=== PATIENT | female | born 1975 ===

== ENCOUNTER 2019-05-17 17:07 | Emergency (ER) | payer SELFPAY ==
[2019-05-17 18:22] VITALS: BP 110/78
--- NOTE | 2019-05-17 19:33 | UC ---
- HPI Summary HPI Summary: PATIENT HAS BEEN BREAST-FEEDING HER ALMOST 2-YEAR-OLD SON 6 TIMES DAILY. STOPPED BREAST-FEEDING COLD TURKEY 3 DAYS AGO AND PRESENTS WITH PAINFUL, TENDER , ENGORGED BREASTS. NO FEVER. NO REDNESS. NO MALAISE. IS WONDERING WHAT TO DO. - History of Current Complaint Hx Obtained From: Patient, Family/Medical Screener - Breast Chief Complaint: Pain Onset/Duration: Started Days Ago, Still Present Timing: Constant Breast Pain Radiates To: Bilateral Breast Pain Aggravating Factors: Nothing - Allergy/Home Medications Allergies/Adverse Reactions: Allergies Allergy/AdvReac Type Severity Reaction Status Date / Time No Known Allergies Allergy Verified 05/17/19 18:18 Home Medications: Home Medications Sertraline* [Zoloft*] 100 mg PO DAILY #30 tab 05/17/19 [Rx] PMH/Surg Hx/FS Hx/Imm Hx Psychological History: Anxiety, Depression - Surgical History Surgical History: Yes Surgery Procedure, Year, and Place: appy. x3. lymph node removal - Family History Known Family History: Positive: Non-Contributory - Social History Alcohol Use: None Substance Use Type: None Smoking Status (MU): Never Smoked Tobacco Review of Systems All Other Systems Reviewed And Are Negative: Yes Constitutional: Positive: Other - BILATERAL BREAST PAIN Skin: Positive: Negative Respiratory: Positive: Negative Cardiovascular: Positive: Negative Gastrointestinal: Positive: Negative Physical Exam Triage Information Reviewed: Yes Appearance: Well-Appearing, No Pain Distress, Well-Nourished Vital Signs: Initial Vital Signs Temp 96.8 F 05/17/19 18:19 Pulse 70 05/17/19 18:19 Resp 18 05/17/19 18:19 BP 110/78 05/17/19 18:19 Pulse Ox 100 05/17/19 18:19 Vital Signs Reviewed: Yes Eyes: Positive: Conjunctiva Clear ENT: Positive: Hearing grossly normal Neck: Positive: Supple Respiratory: Positive: No respiratory distress, No accessory muscle use Cardiovascular: Positive: Pulses Normal Abdomen Description: Positive: Soft Musculoskeletal: Positive: No Edema Neurological: Positive: Alert Psychological: Positive: Age Appropriate Behavior Skin: Negative: Rashes UC Physical Exam Vital Signs On Initial Exam: Initial Vitals Temp Pulse Resp BP Pulse Ox 96.8 F 70 18 110/78 100 05/17/19 18:19 03/17/20 18:19 05/17/19 18:19 05/17/19 18:19 05/17/19 18:19 - Breast Exam Breast Description: Firm Breast Condition: Tender, Engorged Breast Comment: NO REDNESS OR STREAKING Breast Pain Course/Dx - Course Course Of Treatment: PATIENT WITH MILK ENGORGEMENT OF BOTH BREASTS. NO EVIDENCE OF MASTITIS ON EXAM TODAY. ADVISED PATIENT TO MANUALLY EXPRESS A LITTLE BIT OF MILK EACH DAY TO HELP RELIEVE THE PRESSURE. IBUPROFEN FOR DISCOMFORT. HEAT AND MASSAGE, BREAST SUPPORT. FOLLOW-UP IF SIGNS OR SYMPTOMS OF MASTITIS DEVELOP. PT HAS H/O ANXIETY/DEPRESSION AND HAS NOT YET ESTABLISHED WITH A PCP. NEEDS REFILL OF SERTRALINE. HAS BEEN STABLE ON 100MG DAILY FOR YEARS. ADVISED I WOULD DO IT TODAY BUT SHE NEEDS PRIMARY CARE FOR FUTURE REFILLS. - Diagnoses Provider Diagnoses: Milk engorgement of breast Discharge ED - Sign-Out/Discharge Documenting (check all that apply): Patient Departure All imaging exams completed and their final reports reviewed: No Studies - Discharge Plan Condition: Stable Disposition: HOME Prescriptions: Sertraline* [Zoloft*] 100 mg PO DAILY #30 tab Patient Education Materials: and Breast Engorgement (ED) Referrals: [facility] [Provider Group] [facility] [Outside] - If Needed Additional Instructions: YOUR BREAST DISCOMFORT IS FROM BREAST ENGORGEMENT DUE TO YOUR BODY MAKING BREAST MILK THAT IS NOT BEING USED. I RECOMMEND YOU MANUALLY EXPRESS A LITTLE BIT OF BREAST MILK 1 OR 2 TIMES DAILY TO HELP RELIEVE THE PRESSURE. USE IBUPROFEN FOR DISCOMFORT. HEAT AND MASSAGE MAY ALSO HELP. YOU NEED TO SLOWLY TEACH YOUR BODY THAT YOU NO LONGER NEED TO MAKE MILK. IF THE MILK DUCTS BECOME CLOGGED YOU MAY DEVELOP MASTITIS. IF YOU DEVELOP MASTITIS YOU WILL LIKELY HAVE FEVER, MYALGIAS, MALAISE, REDNESS AND/OR STREAKING OVER THE CLOGGED DUCT AND INCREASED TENDERNESS. IF THIS HAPPENS SEEK REEVALUATION YOU WILL LIKELY NEED ANTIBIOTICS. SERTRALINE REFILLED TODAY. YOU WILL NEED TO ESTABLISH WITH A PCP FOR FURTHER REFILLS OF THIS MEDICATION. CALL THE NUMBER BELOW FOR ASSISTANCE IN ESTABLISHING WITH A PCP An additional resource available to assist in finding the appropriate physician for your health care needs is [facility] ([facility]). You may contact them by calling [phone]. - Billing Disposition and Condition Condition: STABLE Disposition: Home
== END 2019-05-17 19:09 | disposition home or self-care (01) ==
LOC: UCEAST 17:07
DX: N64.59 Other signs and symptoms in breast (principal); F41.8 Other specified anxiety disorders; Z79.899 Other long term (current) drug therapy
CPT/HCPCS: 99202; G0463